=== PATIENT | female | born 1980 | race Asian ===

== ENCOUNTER 2025-07-08 11:04 | Emergency (ER) | payer OTHER ==
[~2025-07-08] VITALS: Ht 162.6 cm; Wt 56.2 kg
[2025-07-08 11:09] VITALS: O2SAT 98
[2025-07-08 12:15] VITALS: BP 123/64; PULSE 99; RESP 18; TEMP 36.5; O2SAT 100
[2025-07-08] MEDS: BACITRACIN ZINC OINT UDPKT TOP ONE (14:29)
[2025-07-08] MEDS: TETANUS, DIPHTHERIA, PERTUSSIS VAC/PF 0.5ML (>10YR OLD) IM ONE (14:29)
[2025-07-08] MEDS ORDERED: AMOX1TAB16 MT (14:30)
[2025-07-08] MEDS ORDERED: BO1 TP (14:30)
[2025-07-08] MEDS ORDERED: ACET-2708 MT (14:30)
== END 2025-07-08 14:54 | disposition home or self-care (01) ==
LOC: ER 11:04
DX: S61.254A Open bite of right ring finger without damage to nail, initial encounter (principal); W54.0XXA Bitten by dog, initial encounter; Y93.89 Activity, other specified; Y92.89 Other specified places as the place of occurrence of the external cause; Y99.8 Other external cause status
CPT/HCPCS: 73140; 90715; 90471; 99283; Z7610